=== PATIENT | female | born 1940 | race Caucasian/White ===

== ENCOUNTER 2017-01-06 15:47 | Inpatient (IN) | payer OTHER ==
[~2017-01-06] VITALS: Ht 167.6 cm; Wt 113.4 kg
[~2017-01-06 15:47] MED LIST: 362 PO; 378 PO; 382 PO; AMITRIPTYLINE H10 M1 PO; AMLODIPINE10 MG PO; BAY PO; CENTRUM1 TA2 PO; CYCLOBENZAPRINE10 M2 PO; DONEPEZIL HYDROC5 M1 PO; GABAPENTIN TAB600 MG PO; HYDROCHLOROTH12.5 M2 PO; IBU800 M1 PO; LANTUS SOLOS100 U/M1 SQ; METOCLOPRAMIDE5 M1 PO; METOPROLOL TART25 M1 PO; NEXICLON X0.09 MG/ML PO; OMEPRAZOLE DR20 M1 PO; OYSCO 500 + D 51 TAB PO; OYSCO PO; PRE20 PO; SIMVASTATIN40 MG PO; ST JOHN S WOR PO; TRENTAL400 MG PO; ZES10 PO; ZESTRIL20 PO; [UNRECOGNIZED DRUG - OTHER] PO; [UNRECOGNIZED DRUG - OTHER] PO
[2017-01-06 16:55] LABS: BASOPHIL % 0.2 % (0-2); PLATELET COUNT 210 x10^3mcL (130-400)
[2017-01-06 17:00] LABS: RED CELL DISTRIBUTION WIDTH 15.2 % (11.5-14.5)
[2017-01-06 17:06] LABS: CALCIUM 9.2 mg/dL (8.5-10.1); CARBON DIOXIDE 33.8 mmol/L (21-32); CHLORIDE SERUM 97 mmol/L (98-107); CREATININE SERUM 2.6 mg/dL (0.6-1.0); GLUCOSE SERUM 169 mg/dL (74-106); POTASSIUM SERUM 3.3 mmol/L (3.5-5.1); SODIUM SERUM 137 mmol/L (136-145)
[2017-01-06 17:20] LABS: ALBUMIN 3.4 g/dL (3.4-5.0); ALKALINE PHOSPHATASE 171 U/L (46-116); ALT/SGPT 29 U/L (14-59); AST/SGOT 30 U/L (15-37); BILIRUBIN TOTAL 0.64 mg/dL (0.20-1.00); TOTAL PROTEIN, SERUM 8.2 g/dL (6.4-8.2)
[2017-01-06] MEDS ORDERED: L40I PO (18:03)
[2017-01-06] MEDS ORDERED: NORVASC2.5 MG (18:03)
[2017-01-06 18:43] LABS: FREE T4 1.26 ng/dL (0.76-1.46); FREE THYROXINE INDEX 2.5 ug/dL (1.4-4.5); T3 TOTAL 0.78 ng/mL; T4(THYROXINE) 7.1 ug/dL (4.7-13.3)
[2017-01-06 18:44] LABS: CHOLESTEROL/HDL RATIO 2.7
[2017-01-06 19:08] VITALS: BP 148/65
[2017-01-06] MEDS ORDERED: HUMALOG100 U/ML SC (19:11)
[2017-01-06] MEDS ORDERED: LANTUS SOLOS100 U/M1 SQ (19:13)
[2017-01-06] MEDS ORDERED: ZES10 PO (19:55)
[2017-01-06 21:58] VITALS: BP 151/68
[2017-01-07 06:19] LABS: microscopic required? YES; urine erythrocyte 1+ (NEGATIVE)
[2017-01-07 06:31] VITALS: BP 131/75
[2017-01-07 06:34] LABS: BASOPHIL % 0.2 % (0-2); PLATELET COUNT 200 x10^3mcL (130-400)
[2017-01-07 06:40] LABS: CALCIUM 8.6 mg/dL (8.5-10.1); CARBON DIOXIDE 31.6 mmol/L (21-32); CHLORIDE SERUM 99 mmol/L (98-107); CREATININE SERUM 2.7 mg/dL (0.6-1.0); GLUCOSE SERUM 99 mg/dL (74-106); MAGNESIUM 1.6 mg/dL (1.8-2.4); PHOSPHOROUS 3.2 mg/dL (2.5-4.9); POTASSIUM SERUM 3.3 mmol/L (3.5-5.1); SODIUM SERUM 140 mmol/L (136-145)
[2017-01-07 06:51] LABS: RED CELL DISTRIBUTION WIDTH 14.6 % (11.5-14.5)
[2017-01-07 06:53] LABS: AMPHETAMINE QUAL UR NONE DETECTED (NEG <=1000)
[2017-01-07 08:43] VITALS: BP 137/70
[2017-01-07 13:28] VITALS: BP 135/75
[2017-01-07 17:59] VITALS: BP 151/68
[2017-01-07 20:43] VITALS: BP 147/69
[2017-01-07 22:41] VITALS: BP 147/69
[2017-01-08 06:07] LABS: BASOPHIL % 0.5 % (0-2); PLATELET COUNT 185 x10^3mcL (130-400)
[2017-01-08 06:12] VITALS: BP 113/65
[2017-01-08 06:17] LABS: CALCIUM 8.7 mg/dL (8.5-10.1); CARBON DIOXIDE 28.3 mmol/L (21-32); CHLORIDE SERUM 100 mmol/L (98-107); CREATININE SERUM 2.8 mg/dL (0.6-1.0); GLUCOSE SERUM 211 mg/dL (74-106); MAGNESIUM 2.1 mg/dL (1.8-2.4); POTASSIUM SERUM 3.8 mmol/L (3.5-5.1); SODIUM SERUM 135 mmol/L (136-145)
[2017-01-08 06:18] LABS: ALBUMIN 2.8 g/dL (3.4-5.0)
[2017-01-08 06:36] LABS: RED CELL DISTRIBUTION WIDTH 14.8 % (11.5-14.5)
[2017-01-08 11:00] VITALS: BP 133/53
[2017-01-08] MEDS ORDERED: ROBITUSSIN W/CODEINE PO (16:41)
[2017-01-08] MEDS ORDERED: [UNRECOGNIZED DRUG - OTHER] (16:42)
[2017-01-08] MEDS ORDERED: FLUTICASON (16:42)
[2017-01-08] MEDS ORDERED: MECLIZINE HCL12.5 MG PO (16:42)
[2017-01-08] MEDS ORDERED: PROT40I PO (16:43)
[2017-01-08] MEDS ORDERED: GLU5 PO (16:43)
[2017-01-08] MEDS ORDERED: VITC PO (16:43)
[2017-01-08] MEDS ORDERED: LAC PO (16:44)
[2017-01-08] MEDS ORDERED: THERA TABS1 TAB PO (16:44)
[2017-01-08] MEDS ORDERED: LEVAQUIN750 MG PO (16:45)
[2017-01-08 17:07] VITALS: BP 133/53
== END 2017-01-08 18:52 | disposition home or self-care (01) | DRG 871 ==
LOC: ED 15:47 → DU 17:51 → MU 01-07 23:19
PROVIDERS: Emergency Medicine; Family Medicine; ADMIT Family Medicine
DX: A41.9 Sepsis, unspecified organism (principal); I50.41 Acute combined systolic (congestive) and diastolic (congestive) heart failure; E43 Unspecified severe protein-calorie malnutrition; N17.0 Acute kidney failure with tubular necrosis; I13.0 Hypertensive heart and chronic kidney disease with heart failure and stage 1 through stage 4 chronic kidney disease, or unspecified chronic kidney disease; N18.4 Chronic kidney disease, stage 4 (severe); Z68.41 Body mass index [BMI] 40.0-44.9, adult; D68.69 Other thrombophilia; J01.90 Acute sinusitis, unspecified; R65.20 Severe sepsis without septic shock; I95.1 Orthostatic hypotension; E87.6 Hypokalemia; E11.65 Type 2 diabetes mellitus with hyperglycemia; E11.40 Type 2 diabetes mellitus with diabetic neuropathy, unspecified; E66.01 Morbid (severe) obesity due to excess calories; E78.5 Hyperlipidemia, unspecified; G30.9 Alzheimer's disease, unspecified; F02.80 Dementia in other diseases classified elsewhere, unspecified severity, without behavioral disturbance, psychotic disturbance, mood disturbance, and anxiety; Z90.5 Acquired absence of kidney; Z79.4 Long term (current) use of insulin; Z79.82 Long term (current) use of aspirin; Z85.528 Personal history of other malignant neoplasm of kidney
CPT/HCPCS: 80307; 83880; 84439; 94150; C9113; J1644; J1940; J2543; J3475; J7030; J7620; Q0092

== ENCOUNTER 2017-03-07 11:49 | Inpatient (IN) | payer OTHER ==
[~2017-03-07] VITALS: Ht 167.6 cm; Wt 119.5 kg
[~2017-03-07 11:49] MED LIST changes: +FLUTICASON; +GLU5 PO; +HUMALOG100 U/ML SC; +L40I PO; +LAC PO; +LEVAQUIN750 MG PO; +MECLIZINE HCL12.5 MG PO; +NORVASC2.5 MG; +PROT40I PO; +ROBITUSSIN W/CODEINE PO; +THERA TABS1 TAB PO; +VITC PO; +[UNRECOGNIZED DRUG - OTHER]
[2017-03-07 12:28] LABS: BASOPHIL % 0.5 % (0-2); PLATELET COUNT 205 x10^3mcL (130-400)
[2017-03-07 12:35] LABS: RED CELL DISTRIBUTION WIDTH 16.8 % (11.5-14.5)
[2017-03-07 13:05] LABS: ALBUMIN 3.7 g/dL (3.4-5.0); ALKALINE PHOSPHATASE 138 U/L (46-116); ALT/SGPT 28 U/L (14-59); AST/SGOT 30 U/L (15-37); BILIRUBIN TOTAL 0.42 mg/dL (0.20-1.00); CALCIUM 9.4 mg/dL (8.5-10.1); CARBON DIOXIDE 26.8 mmol/L (21-32); CHLORIDE SERUM 106 mmol/L (98-107); CREATININE SERUM 2.3 mg/dL (0.6-1.0); POTASSIUM SERUM 4.5 mmol/L (3.5-5.1); SODIUM SERUM 144 mmol/L (136-145); TOTAL PROTEIN, SERUM 7.7 g/dL (6.4-8.2)
[2017-03-07] MEDS ORDERED: METOPROLOL TART50 MG PO (13:07)
[2017-03-07] MEDS ORDERED: ALLOPURINOL100 MG PO (13:07)
[2017-03-07] MEDS ORDERED: LISINOPRIL20 MG PO (13:07)
[2017-03-07] MEDS ORDERED: GLUCOTROL5 MG PO (13:08)
[2017-03-07 13:13] LABS: GLUCOSE SERUM 57 mg/dL (74-106)
[2017-03-07 14:03] LABS: UA SPECIFIC GRAVITY <=1.005 (1.005-1.035); microscopic required? YES; urine erythrocyte 1+ (NEGATIVE)
[2017-03-07 14:35] LABS: MAGNESIUM 1.9 mg/dL (1.8-2.4); PHOSPHOROUS 4.1 mg/dL (2.5-4.9)
[2017-03-07 14:47] LABS: FREE T4 0.98 ng/dL (0.76-1.46); FREE THYROXINE INDEX 2.2 ug/dL (1.4-4.5); T4(THYROXINE) 6.6 ug/dL (4.7-13.3)
[2017-03-07 14:48] VITALS: BP 176/69
[2017-03-07 15:10] LABS: CHOLESTEROL/HDL RATIO 3.3
[2017-03-07 15:33] LABS: T3 TOTAL 0.99 ng/mL
[2017-03-07 18:07] VITALS: BP 143/65
[2017-03-07 21:11] VITALS: BP 127/70
[2017-03-07 21:55] VITALS: BP 147/71
[2017-03-08 04:22] LABS: BASOPHIL % 0.4 % (0-2); PLATELET COUNT 198 x10^3mcL (130-400)
[2017-03-08 04:26] LABS: RED CELL DISTRIBUTION WIDTH 17.1 % (11.5-14.5)
[2017-03-08 04:31] LABS: CALCIUM 8.9 mg/dL (8.5-10.1); CARBON DIOXIDE 31.1 mmol/L (21-32); CHLORIDE SERUM 105 mmol/L (98-107); CREATININE SERUM 2.3 mg/dL (0.6-1.0); POTASSIUM SERUM 3.9 mmol/L (3.5-5.1); SODIUM SERUM 142 mmol/L (136-145)
[2017-03-08 04:33] LABS: GLUCOSE SERUM 48 mg/dL (74-106)
[2017-03-08 06:39] VITALS: BP 101/65
[2017-03-08 09:24] VITALS: BP 111/63
[2017-03-08 13:49] VITALS: BP 146/57
[2017-03-08 17:08] VITALS: BP 132/64
[2017-03-08 21:09] VITALS: BP 146/65
[2017-03-09 05:50] VITALS: BP 126/57
[2017-03-09 06:21] LABS: BASOPHIL % 0.6 % (0-2); PLATELET COUNT 183 x10^3mcL (130-400)
[2017-03-09 06:28] LABS: CALCIUM 8.5 mg/dL (8.5-10.1); CARBON DIOXIDE 27.3 mmol/L (21-32); CHLORIDE SERUM 101 mmol/L (98-107); CREATININE SERUM 2.5 mg/dL (0.6-1.0); GLUCOSE SERUM 96 mg/dL (74-106); SODIUM SERUM 126 mmol/L (136-145)
[2017-03-09 06:48] LABS: RED CELL DISTRIBUTION WIDTH 16.5 % (11.5-14.5)
[2017-03-09 09:55] VITALS: BP 129/61
[2017-03-09 11:54] LABS: CALCIUM 8.8 mg/dL (8.5-10.1); CARBON DIOXIDE 28.7 mmol/L (21-32); CHLORIDE SERUM 102 mmol/L (98-107); CREATININE SERUM 2.4 mg/dL (0.6-1.0); GLUCOSE SERUM 189 mg/dL (74-106); POTASSIUM SERUM 4.9 mmol/L (3.5-5.1); SODIUM SERUM 137 mmol/L (136-145)
[2017-03-09 14:22] VITALS: BP 139/61
[2017-03-09 18:02] VITALS: BP 134/60
[2017-03-09 21:53] VITALS: BP 156/94
[2017-03-10 06:09] LABS: BASOPHIL % 0.5 % (0-2); PLATELET COUNT 183 x10^3mcL (130-400)
[2017-03-10 06:16] LABS: RED CELL DISTRIBUTION WIDTH 16.6 % (11.5-14.5)
[2017-03-10 06:17] VITALS: BP 147/62
[2017-03-10 06:21] LABS: CALCIUM 8.8 mg/dL (8.5-10.1); CARBON DIOXIDE 28.5 mmol/L (21-32); CHLORIDE SERUM 104 mmol/L (98-107); CREATININE SERUM 2.2 mg/dL (0.6-1.0); GLUCOSE SERUM 135 mg/dL (74-106); POTASSIUM SERUM 4.6 mmol/L (3.5-5.1); SODIUM SERUM 141 mmol/L (136-145)
[2017-03-10 10:12] VITALS: BP 151/70
[2017-03-10] MEDS ORDERED: NEU300 PO (11:16)
[2017-03-10] MEDS ORDERED: HUMULIN R100 U/1 M1 SC (14:06)
[2017-03-10] MEDS ORDERED: LASIX40 MG PO (14:19)
[2017-03-10] MEDS ORDERED: GLIPIZIDE ER5 M1 PO (14:20)
[2017-03-10 14:52] VITALS: BP 145/68
[2017-03-10] MEDS ORDERED: IBUPROFEN800 MG PO (15:20)
== END 2017-03-10 16:02 | disposition home or self-care (01) | DRG 205 ==
LOC: ED 11:49 → DU 12:54
PROVIDERS: Emergency Medicine; ADMIT Family Medicine
DX: M94.0 Chondrocostal junction syndrome [Tietze] (principal); N17.0 Acute kidney failure with tubular necrosis; E43 Unspecified severe protein-calorie malnutrition; Z68.41 Body mass index [BMI] 40.0-44.9, adult; I42.9 Cardiomyopathy, unspecified; R60.0 Localized edema; R31.9 Hematuria, unspecified; I16.0 Hypertensive urgency; E11.65 Type 2 diabetes mellitus with hyperglycemia; G50.0 Trigeminal neuralgia; D64.9 Anemia, unspecified; E78.1 Pure hyperglyceridemia; E66.01 Morbid (severe) obesity due to excess calories; Z85.520 Personal history of malignant carcinoid tumor of kidney; Z90.5 Acquired absence of kidney; Z79.4 Long term (current) use of insulin; Z79.82 Long term (current) use of aspirin; Z79.1 Long term (current) use of non-steroidal anti-inflammatories (NSAID)
CPT/HCPCS: 83880; 84439; B4164; J1940; J3490; J7030; J7042; J7050; Q0092

== ENCOUNTER 2018-11-20 13:12 | Emergency (ER) | payer OTHER ==
[~2018-11-20] VITALS: Ht 170.2 cm; Wt 113.9 kg
[~2018-11-20 13:12] MED LIST changes: +ALLOPURINOL100 MG PO; +GLIPIZIDE ER5 M1 PO; +GLUCOTROL5 MG PO; +HUMULIN R100 U/1 M1 SC; +IBUPROFEN800 MG PO; +LASIX40 MG PO; +LISINOPRIL20 MG PO; +METOPROLOL TART50 MG PO; +NEU300 PO
[2018-11-20 13:21] VITALS: Ht 170.2 cm; Wt 113.9 kg
[2018-11-20 15:06] LABS: BASOPHIL % 0.3 % (0-2); PLATELET COUNT 279 x10^3mcL (130-400)
[2018-11-20 15:11] LABS: RED CELL DISTRIBUTION WIDTH 14.9 % (11.5-14.5)
[2018-11-20 15:24] LABS: CALCIUM 9.5 mg/dL (8.5-10.1); CARBON DIOXIDE 27.6 mmol/L (21-32); CHLORIDE SERUM 100 mmol/L (98-107); CREATININE SERUM 2.5 mg/dL (0.6-1.0); GLUCOSE SERUM 177 mg/dL (74-106); POTASSIUM SERUM 4.4 mmol/L (3.5-5.1); SODIUM SERUM 137 mmol/L (136-145)
[2018-11-20 15:28] LABS: ALBUMIN 3.3 g/dL (3.4-5.0); ALKALINE PHOSPHATASE 106 U/L (46-116); ALT/SGPT 31 U/L (14-59); AST/SGOT 38 U/L (15-37); BILIRUBIN TOTAL 0.63 mg/dL (0.20-1.00); TOTAL PROTEIN, SERUM 7.9 g/dL (6.4-8.2)
[2018-11-20 17:50] VITALS: BP 153/64
== END 2018-11-20 17:50 | disposition home or self-care (01) ==
LOC: ED 13:12
PROVIDERS: Emergency Medicine
DX: J11.1 Influenza due to unidentified influenza virus with other respiratory manifestations (principal); J40 Bronchitis, not specified as acute or chronic; K57.30 Diverticulosis of large intestine without perforation or abscess without bleeding; R53.1 Weakness; I10 Essential (primary) hypertension; E11.9 Type 2 diabetes mellitus without complications; E78.00 Pure hypercholesterolemia, unspecified; K21.9 Gastro-esophageal reflux disease without esophagitis; Z88.8 Allergy status to other drugs, medicaments and biological substances
CPT/HCPCS: 36415; 87804; Q0092

== ENCOUNTER 2018-12-11 20:22 | Emergency (ER) | payer OTHER, MEDICAID ==
[~2018-12-11] VITALS: Ht 172.7 cm; Wt 117.0 kg
[2018-12-11 20:33] VITALS: Ht 172.7 cm; Wt 117.0 kg
[2018-12-11 21:50] LABS: BASOPHIL % 0.5 % (0-2); PLATELET COUNT 220 x10^3mcL (130-400)
[2018-12-11 21:52] LABS: RED CELL DISTRIBUTION WIDTH 15.9 % (11.5-14.5)
[2018-12-11 22:05] LABS: CALCIUM 8.8 mg/dL (8.5-10.1); CARBON DIOXIDE 22.9 mmol/L (21-32); CHLORIDE SERUM 103 mmol/L (98-107); CREATININE SERUM 3.2 mg/dL (0.6-1.0); GLUCOSE SERUM 208 mg/dL (74-106); POTASSIUM SERUM 4.9 mmol/L (3.5-5.1); SODIUM SERUM 139 mmol/L (136-145)
[2018-12-11 22:09] LABS: ALBUMIN 3.5 g/dL (3.4-5.0); ALKALINE PHOSPHATASE 135 U/L (46-116); AST/SGOT 32 U/L (15-37); BILIRUBIN TOTAL 0.43 mg/dL (0.20-1.00); CHOLESTEROL 171 mg/dL (<200); HDL CHOLESTEROL 49 mg/dL (40-60); PHOSPHOROUS 4.5 mg/dL (2.5-4.9); TOTAL PROTEIN, SERUM 7.9 g/dL (6.4-8.2); URIC ACID 7.7 mg/dL (2.6-6.0)
[2018-12-11 22:20] LABS: ALT/SGPT 23 U/L (14-59)
[2018-12-11 23:26] VITALS: BP 124/57
== END 2018-12-11 23:26 | disposition home or self-care (01) ==
LOC: ED 20:22
PROVIDERS: Emergency Medicine
DX: R53.1 Weakness (principal); F41.9 Anxiety disorder, unspecified; R20.0 Anesthesia of skin; E11.9 Type 2 diabetes mellitus without complications; I10 Essential (primary) hypertension; E78.00 Pure hypercholesterolemia, unspecified; K21.9 Gastro-esophageal reflux disease without esophagitis; Z88.8 Allergy status to other drugs, medicaments and biological substances; Z85.528 Personal history of other malignant neoplasm of kidney
CPT/HCPCS: 36415; 82962; J7030; Q0092

== ENCOUNTER 2019-07-21 15:22 | Inpatient (IN) | payer OTHER, MEDICAID ==
[~2019-07-21] VITALS: Ht 170.2 cm; Wt 113.0 kg
[~2019-07-21 15:22] MED LIST changes: +SIMVASTATIN40 M1 PO; -SIMVASTATIN40 MG PO
[2019-07-21 15:32] VITALS: Ht 170.2 cm; Wt 113.0 kg
[2019-07-21 16:35] LABS: BASOPHIL % 0.4 % (0-2); PLATELET COUNT 184 x10^3mcL (130-400)
[2019-07-21 16:36] LABS: RED CELL DISTRIBUTION WIDTH 16.9 % (11.5-14.5)
[2019-07-21 17:02] LABS: ALBUMIN 3.4 g/dL (3.4-5.0); ALKALINE PHOSPHATASE 165 U/L (46-116); ALT/SGPT 20 U/L (14-59); AST/SGOT 24 U/L (15-37); BILIRUBIN TOTAL 0.4 mg/dL (0.20-1.00); CALCIUM 8.8 mg/dL (8.5-10.1); CHLORIDE SERUM 105 mmol/L (98-107); GLUCOSE SERUM 160 mg/dL (74-106); SODIUM SERUM 138 mmol/L (136-145); TOTAL PROTEIN, SERUM 7.4 g/dL (6.4-8.2)
[2019-07-21 17:09] LABS: POTASSIUM SERUM 6.2 mmol/L (3.5-5.1)
[2019-07-21 23:02] VITALS: BP 150/63
[2019-07-21 23:05] VITALS: BP 150/63
[2019-07-22] VITALS (7 sets, daily range): BP systolic 139–191; BP diastolic 59–85
[2019-07-22 00:06] LABS: CALCIUM 8.5 mg/dL (8.5-10.1); CARBON DIOXIDE 29 mmol/L (21-32); CHLORIDE SERUM 107 mmol/L (98-107); CREATININE SERUM 1.9 mg/dL (0.6-1.0); GLUCOSE SERUM 175 mg/dL (74-106); POTASSIUM SERUM 5.1 mmol/L (3.5-5.1); SODIUM SERUM 142 mmol/L (136-145)
[2019-07-22 06:57] LABS: CALCIUM 9.1 mg/dL (8.5-10.1); CARBON DIOXIDE 28.1 mmol/L (21-32); CHLORIDE SERUM 109 mmol/L (98-107); CREATININE SERUM 1.7 mg/dL (0.6-1.0); GLUCOSE SERUM 80 mg/dL (74-106); MAGNESIUM 2.1 mg/dL (1.8-2.4); POTASSIUM SERUM 5.3 mmol/L (3.5-5.1); SODIUM SERUM 144 mmol/L (136-145)
[2019-07-22 07:09] LABS: BASOPHIL % 0.7 % (0-2); PLATELET COUNT 184 x10^3mcL (130-400)
[2019-07-22 07:10] LABS: RED CELL DISTRIBUTION WIDTH 16.6 % (11.5-14.5)
[2019-07-22 14:36] LABS: CALCIUM 8.3 mg/dL (8.5-10.1); CARBON DIOXIDE 28.2 mmol/L (21-32); CHLORIDE SERUM 108 mmol/L (98-107); CREATININE SERUM 1.9 mg/dL (0.6-1.0); GLUCOSE SERUM 199 mg/dL (74-106); POTASSIUM SERUM 5.3 mmol/L (3.5-5.1); SODIUM SERUM 142 mmol/L (136-145)
[2019-07-23 05:06] VITALS: BP 150/77
[2019-07-23 07:19] LABS: CALCIUM 8.3 mg/dL (8.5-10.1); CARBON DIOXIDE 30.1 mmol/L (21-32); CHLORIDE SERUM 110 mmol/L (98-107); CREATININE SERUM 1.8 mg/dL (0.6-1.0); GLUCOSE SERUM 117 mg/dL (74-106); MAGNESIUM 1.7 mg/dL (1.8-2.4); SODIUM SERUM 145 mmol/L (136-145)
[2019-07-23 07:31] LABS: BASOPHIL % 0.6 % (0-2); PLATELET COUNT 160 x10^3mcL (130-400)
[2019-07-23 07:33] LABS: RED CELL DISTRIBUTION WIDTH 17.1 % (11.5-14.5)
[2019-07-23 08:34] VITALS: BP 170/72
[2019-07-23 11:03] VITALS: BP 145/52
[2019-07-23 12:38] VITALS: BP 145/51
== END 2019-07-23 13:14 | disposition home or self-care (01) | DRG 640 ==
LOC: ED 15:22 → DU 21:58
PROVIDERS: Student in an Organized Health Care Education/Training Program; ADMIT Internal Medicine Pulmonary Disease
DX: E87.5 Hyperkalemia (principal); N17.0 Acute kidney failure with tubular necrosis; I12.9 Hypertensive chronic kidney disease with stage 1 through stage 4 chronic kidney disease, or unspecified chronic kidney disease; N18.3 Chronic kidney disease, stage 3 (moderate); E11.649 Type 2 diabetes mellitus with hypoglycemia without coma; E11.65 Type 2 diabetes mellitus with hyperglycemia; E11.22 Type 2 diabetes mellitus with diabetic chronic kidney disease; K21.9 Gastro-esophageal reflux disease without esophagitis; G30.0 Alzheimer's disease with early onset; F02.80 Dementia in other diseases classified elsewhere, unspecified severity, without behavioral disturbance, psychotic disturbance, mood disturbance, and anxiety; Z90.5 Acquired absence of kidney; Z68.38 Body mass index [BMI] 38.0-38.9, adult; Z79.84 Long term (current) use of oral hypoglycemic drugs; Z85.53 Personal history of malignant neoplasm of renal pelvis; Z91.19 Patient's noncompliance with other medical treatment and regimen
CPT/HCPCS: 82962; 90658; 90732; G0378; J0610; J3490; J7030; Q0092